=== PATIENT | male | born 1985 | race Caucasian/White ===

== ENCOUNTER 2017-05-15 18:39 | Emergency (ER) | payer BC ==
[2017-05-15] MEDS ORDERED: HYDROmorphone 1 MG/ML 1 ML SYRINGE IM STA (19:04)
--- NOTE | 2017-05-15 19:08 | ED ---
Fall HPI - General Chief Complaint: Fall Stated Complaint: fall, rt shoulder, unconscious Time Seen by Provider: 05/15/17 18:57 Source: patient, RN notes reviewed Mode of arrival: wheelchair - History of Present Illness Initial Comments: 31-year-old male presents to the emergency Department chief complaint of fall. Patient states she was about 13 feet up in a tree and he fell out of it. Patient states he landed onto his right shoulder and since has right shoulder pain. The people who witnessed the fall did state that he hit his head and they do believe that he lost consciousness. He states that they didn't fall on the shoulder and they heard some popping and cracking so they thought that they should be seen. Patient denies any history of injury to the shoulder in the past. Patient denies any use of blood thinners. Patient states that at this time he is just having really bad shoulder pain and any movement seems to make it worse. Patient denies any chest pain any shortness of breath any abdominal pain and leg pain. Patient states his shoulder took most of the fall. Patient was concerned due to his symptoms so he thought that he should be evaluated. Patient denies any recent fever, chills, shortness of breath, chest pain, back pain, abdominal pain, nausea vomiting, numbness or tingling, dysuria or hematuria, constipation or diarrhea, headaches or visual changes, or any other current symptoms. - Related Data Previous Rx's Medication Instructions Recorded Hydrocodone/Acetaminophen [[place] 1 each PO Q6HR PRN #20 tab 05/15/17 5-325] Allergies Allergy/AdvReac Type Severity Reaction Status Date / Time No Known Allergies Allergy Verified 05/15/17 19:27 Review of Systems ROS Statement: Those systems with pertinent positive or pertinent negative responses have been documented in the HPI. ROS Other: All systems not noted in ROS Statement are negative. Past Medical History Past Medical History: No Reported History History of Any Multi-Drug Resistant Organisms: None Reported Additional Past Surgical History / Comment(s): facial, pelvis reconstructed Past Psychological History: No Psychological Hx Reported Smoking Status: Current every day smoker Past Alcohol Use History: Occasional Past Drug Use History: Marijuana General Exam Limitations: no limitations General appearance: alert, in no apparent distress Head exam: Present: atraumatic, normocephalic. Absent: normal inspection ( Patient does appear to have an abrasion around the right ear.) Eye exam: Present: normal appearance, PERRL, EOMI. Absent: scleral icterus, conjunctival injection, periorbital swelling ENT exam: Present: normal exam, mucous membranes moist Neck exam: Present: normal inspection. Absent: tenderness, meningismus, lymphadenopathy Respiratory exam: Present: normal lung sounds bilaterally. Absent: respiratory distress, wheezes, rales, rhonchi, stridor Cardiovascular Exam: Present: regular rate, normal rhythm, normal heart sounds. Absent: systolic murmur, diastolic murmur, rubs, gallop, clicks GI/Abdominal exam: Present: soft, normal bowel sounds. Absent: distended, tenderness, guarding, rebound, rigid Extremities exam: Present: normal inspection, tenderness (Along the spine of the scapula otherwise no tenderness throughout the body.), normal capillary refill. Absent: full ROM (Patient has pain with range of motion of the right shoulder and he will not allow me to assess due to his pain. ), pedal edema, joint swelling, calf tenderness Neurological exam: Present: alert, oriented X3 Psychiatric exam: Present: normal affect, normal mood Skin exam: Present: warm, dry, intact, normal color. Absent: rash Course Vital Signs 05/15/17 05/15/17 18:44 20:38 Temperature 97.7 F 98.3 F Pulse Rate 57 L 65 Respiratory 18 21 Rate Blood Pressure 121/78 140/88 O2 Sat by Pulse 98 99 Oximetry Procedures - Orthopedic Splinting/Casting Injury #1 Side: right Upper Extremity Injury Location: shoulder Upper Extremity Immobilizer: sling/shoulder immobilizer Medical Decision Making - Medical Decision Making 31-year-old male presents to emergency room chief complaint of fall. This and lab work and CAT scan is reviewed. patient does appear to have a fracture is questionable rib fracture. At this time we will the patient pain medication for home. We discussed follow-up with orthopedic. Discussed return parameters all questions. Patient family stated the [facility] management this plan. They will be discharged. - Lab Data Result diagrams: 05/15/17 21:16 05/15/17 21:16 Lab Results 05/15/17 05/15/17 Range/Units 21:16 21:16 WBC 21.0 H (3.8-10.6) k/uL RBC 4.83 (4.30-5.90) m/uL Hgb 15.9 (13.0-17.5) gm/dL Hct 46.8 (39.0-53.0) % MCV 96.9 (80.0-100.0) fL MCH 33.0 (25.0-35.0) pg MCHC 34.1 (31.0-37.0) g/dL RDW 14.1 (11.5-15.5) % Plt Count 322 (150-450) k/uL Neutrophils % 85 % Lymphocytes % 9 % Monocytes % 4 % Eosinophils % 1 % Basophils % 0 % Neutrophils # 17.9 H (1.3-7.7) k/uL Lymphocytes # 1.9 (1.0-4.8) k/uL Monocytes # 0.8 (0-1.0) k/uL Eosinophils # 0.2 (0-0.7) k/uL Basophils # 0.1 (0-0.2) k/uL Sodium 142 (137-145) mmol/L Potassium 4.2 (3.5-5.1) mmol/L Chloride 105 (98-107) mmol/L Carbon Dioxide 22 (22-30) mmol/L Anion Gap 15 mmol/L BUN 13 (9-20) mg/dL Creatinine 0.60 L (0.66-1.25) mg/dL Est GFR (MDRD) Af Amer >60 (>60 ml/min/1.73 sqM) Est GFR (MDRD) Non-Af >60 (>60 ml/min/1.73 sqM) Glucose 88 (74-99) mg/dL Calcium 9.4 (8.4-10.2) mg/dL Total Bilirubin 0.5 (0.2-1.3) mg/dL AST 31 (17-59) U/L ALT 37 (21-72) U/L Alkaline Phosphatase 59 (38-126) U/L Total Protein 7.9 (6.3-8.2) g/dL Albumin 5.1 H (3.5-5.0) g/dL - Radiology Data Radiology results: report reviewed, image reviewed Disposition Clinical Impression: Fall, Right scapula fracture Disposition: HOME SELF-CARE Condition: Stable Instructions: Scapular Fracture (ED) Additional Instructions: Please use medication as discussed. Please follow up with family doctor if symptoms have not improved over the next two days. Please return to the emergency room if your symptoms increase or worsen or for any other concerns. Prescriptions: Hydrocodone/Acetaminophen [[place] 5-325] 1 each PO Q6HR PRN #20 tab PRN Reason: Pain Referrals: Tez Calderon MD [STAFF PHYSICIAN] - 1-2 days Time of Disposition: 22:51
--- NOTE | 2017-05-15 19:41 | CT ---
EXAMINATION TYPE: CT brain cspine wo con DATE OF EXAM: 05/15/2017 COMPARISON: NONE HISTORY: Patient fell and injured right shoulder. Patient may have had LOC. CT DLP: 1249.3 mGycm Automated exposure control for dose reduction was used. TECHNIQUE: CT scan of the head and cervical spine are performed without contrast. FINDINGS: There is a large cisterna magna which is a normal variant. There is no mass effect nor mi dline shift. There is no sign of intracranial hemorrhage. The calvarium is intact. Cervical vertebra have normal spacing and alignment. Posterior elements are intact. Facet joints appe ar normal. Skull base is intact. IMPRESSION: Negative CT scan of the brain. Negative CT scan cervical spine.
--- NOTE | 2017-05-15 20:58 | XR ---
EXAMINATION TYPE: XR shoulder complete RT DATE OF EXAM: 05/15/2017 COMPARISON: NONE HISTORY: Pain and injury TECHNIQUE: 2 views FINDINGS: There are lucent lines projected over the scapula that are suspicious for nondisplaced frac tures. The glenohumeral joint is anatomic. IMPRESSION: I suspect nondisplaced scapular fractures.
--- NOTE | 2017-05-15 20:59 | XR ---
EXAMINATION TYPE: XR scapula RT DATE OF EXAM: 05/15/2017 COMPARISON: NONE HISTORY: Pain TECHNIQUE: 3 views FINDINGS: There are lucent lines projected over the scapula consistent with nondisplaced fractures. T he glenohumeral joint is anatomic. AC joint is intact. IMPRESSION: Scapular fractures are present.
[2017-05-15] MEDS ORDERED: RX INFO: IV CONTRAST WAS GIVEN 1 EACH MISC MISCELLANE PRN (21:04)
[2017-05-15] MEDS ORDERED: HYDROmorphone 1 MG/ML 1 ML SYRINGE IVP STA ×2 (21:04→22:52)
[2017-05-15] MEDS ORDERED: SODIUM CHLORIDE 0.9% 1,000 ML IV STA (21:04)
[2017-05-15 21:35] LABS: Basophils # (A) 0.1 k/uL (0-0.2); Basophils % (A) 0 %; CHCM 34.2; Eosinophils # (A) 0.2 k/uL (0-0.7); Eosinophils % (A) 1 %; HCT 46.8 % (39.0-53.0); HDW 2.23; HGB 15.9 gm/dL (13.0-17.5); Luc # (Auto) 0.16; Luc % (Auto) 1; Lymphocytes # (A) 1.9 k/uL (1.0-4.8); Lymphocytes % (A) 9 %; MCHC 34.1 g/dL (31.0-37.0); MCV 96.9 fL (80.0-100.0); Monocytes # (A) 0.8 k/uL (0-1.0); Monocytes % (A) 4 %; Neutrophils # (A) 17.9 k/uL (1.3-7.7); Neutrophils % (A) 85 %; RBC 4.83 m/uL (4.30-5.90); RDW 14.1 % (11.5-15.5); WBC (Perox) 19.37
[2017-05-15 21:44] LABS: ALT 37 U/L (21-72); AST 31 U/L (17-59); Alkaline Phosphatase 59 U/L (38-126); Anion Gap 15 mmol/L; Blood Urea Nitrogen 13 mg/dL (9-20); Calcium 9.4 mg/dL (8.4-10.2); Carbon Dioxide 22 mmol/L (22-30); Chloride 105 mmol/L (98-107); Glucose 88 mg/dL (74-99); Non-African American GFR(MDRD) >60 (>60 ml/min/1.73 sqM); Potassium 4.2 mmol/L (3.5-5.1); Sodium 142 mmol/L (137-145); Total Bilirubin 0.5 mg/dL (0.2-1.3); Total Protein 7.9 g/dL (6.3-8.2)
--- NOTE | 2017-05-15 22:43 | CT ---
Exam: CT CHEST with Contrast History: Pain. Trauma, fall. Comparison: No prior CT provided. Technique: Continuous axial images of the chest were obtained with intravenous contrast. Coronal and sagittal reformatting was provided. Findings: No consolidation or effusion. No acute aortic abnormality. No lymphadenopathy. Thyroid is unremarkable. Comminuted fracture of the right scapular body extending superiorly to the spine. The glenoid fossa is intact. Question nondisplaced fracture of the left sixth rib laterally. Impression: Comminuted fracture of the right scapula without intra-articular extension. Questionable nondisplaced fracture of the left sixth rib laterally. CTDI vol = 6.30 mGy DLP = 450.10 mGycm One or more of the following dose reduction techniques were used: automated exposure control, adjustment of the mA and/or kV according to patient size, use of iterative reconstruction technique. Exam: CT ABDOMEN + PELVIS With Contrast History: Trauma. Comparison: None provided. Technique: Continuous axial images of the abdomen and pelvis are obtained after administration of intravenous contrast. Coronal and sagittal reformatting was provided. Findings: The liver, gallbladder, spleen, pancreas, adrenal glands, and kidneys show no substantial abnormality. No dilated loops of bowel to suggest obstruction. No evidence for diverticulitis. No evidence for appendicitis. No acute aortic abnormality. No lymphadenopathy. The urinary bladder shows no substantial abnormality. No aggressive appearing osseous process. Impression: No evidence for acute abdominal or pelvic injury. CTDI vol = 6.30 mGy DLP = 450.10 mGycm One or more of the following dose reduction techniques were used: automated exposure control, adjustment of the mA and/or kV according to patient size, use of iterative reconstruction technique.
[2017-05-15 23:52] VITALS: BP 136/67; PULSE 59; RESP 18; TEMP 97.8
== END 2017-05-15 23:59 | disposition home or self-care (01) ==
LOC: EC 18:39
DX: S42.114A Nondisplaced fracture of body of scapula, right shoulder, initial encounter for closed fracture (principal); S00.411A Abrasion of right ear, initial encounter; F17.200 Nicotine dependence, unspecified, uncomplicated; W14.XXXA Fall from tree, initial encounter
CPT/HCPCS: 99284; 96374; 96376; 96361; 96372; 36415; 80053; 85025; 73010; 73030; 72125; 70450; 71260; 74177; J1170; Q9967